=== PATIENT | male | born 1995 ===

== ENCOUNTER 2021-11-28 21:14 | Emergency (ER) | payer SELFPAY ==
[~2021-11-28] VITALS: Ht 172.7 cm; Wt 83.0 kg
[2021-11-28] MEDS ORDERED: HYDROCODONE/ACETAMINOPHEN 5/325MG TABLET PO ONE (22:45)
[2021-11-28] MEDS ORDERED: FLUORESCEIN SODIUM 1MG/STRIP BOTHEYE ONE (22:45)
[2021-11-28] MEDS ORDERED: TETRACAINE 0.5% OPHTH DROPS 4ML BOTHEYE ONE (22:45)
[2021-11-29] MEDS ORDERED: ACETAMINOPHEN 325MG TABLET PO ONE (01:15)
[2021-11-29 02:30] VITALS: BP 125/78
== END 2021-11-29 02:37 | disposition home or self-care (01) ==
LOC: ER 21:14
DX: S02.2XXA Fracture of nasal bones, initial encounter for closed fracture (principal); S06.9X0A Unspecified intracranial injury without loss of consciousness, initial encounter; Y04.0XXA Assault by unarmed brawl or fight, initial encounter; Y93.89 Activity, other specified; Y92.89 Other specified places as the place of occurrence of the external cause; Y99.8 Other external cause status
CPT/HCPCS: 70486; 99284